=== PATIENT | male | born 1975 | race Caucasian/White ===

== ENCOUNTER 2024-06-20 06:40 | Day surgery (SDC) | payer BC ==
[2024-06-15 14:59] VITALS: BMI 28.1
[2024-06-20] MEDS ORDERED: PROPOFOL 60 ML ONE (08:33)
[2024-06-20] MEDS ORDERED: PROPOFOL 20 ML ONE ×2 (08:49→09:02)
== END 2024-06-20 09:47 | disposition home or self-care (01) ==
LOC: CSHSDC 06:40
PROVIDERS: ATTEND Surgery
PROC: 0DBN8ZZ Excision of Sigmoid Colon, Via Natural or Artificial Opening Endoscopic (ICD-10-PCS; principal; 2024-06-20)
PROC: 0DBF8ZZ Excision of Right Large Intestine, Via Natural or Artificial Opening Endoscopic (ICD-10-PCS; principal; 2024-06-20)
DX: Z12.11 Encounter for screening for malignant neoplasm of colon (principal); D12.5 Benign neoplasm of sigmoid colon; K63.5 Polyp of colon; K57.30 Diverticulosis of large intestine without perforation or abscess without bleeding; I10 Essential (primary) hypertension; F17.220 Nicotine dependence, chewing tobacco, uncomplicated; F90.9 Attention-deficit hyperactivity disorder, unspecified type; Z79.899 Other long term (current) drug therapy
CPT/HCPCS: 88305; J2704